=== PATIENT | male | born 1985 | race Caucasian/White ===

== ENCOUNTER 2018-03-05 15:10 | Emergency (ER) | payer SELFPAY ==
--- NOTE | 2018-03-05 15:49 | RAD ---
LEFT SHOULDER: 03/05/18 Three views. INDICATION: Injury with shoulder pain. Humeral head is normally positioned. AC joint is normally aligned. Small osseous fragment adjacent to the AC joint may represent prior injury. This does not appear to represent an acute fracture. This d oes not appear consistent with hypertrophic spurring. IMPRESSION: No evidence of acute abnormality. POS: [facility]
[2018-03-05] MEDS ORDERED: HYDROcodone/Acetaminophen 5/325 mg Tablet ONE (15:58)
[2018-03-05] MEDS ORDERED: Ketorolac Tromethamine 60 MG/2 ML VIAL ONE (15:58)
[2018-03-05] MEDS ORDERED: Acetaminophen 500 MG TAB ONE (15:58)
== END 2018-03-05 16:10 | disposition home or self-care (01) ==
LOC: MADERS 15:10
DX: S43.402A Unspecified sprain of left shoulder joint, initial encounter (principal); V29.9XXA Motorcycle rider (driver) (passenger) injured in unspecified traffic accident, initial encounter
CPT/HCPCS: 96372; J1885

== ENCOUNTER 2018-09-04 22:26 | Emergency (ER) | payer SELFPAY, BC ==
[2018-09-04] MEDS ORDERED: Nitroglycerin 0.4 MG TAB (25 Tab Bottle) ONE (22:46)
[2018-09-04 22:48] LABS: #Basophils 0.1 thou/uL (0.0-0.2); #Eosinphils 0.3 thou/uL (0.0-0.7); #Lymphocytes 3.9 thou/uL (1.20-3.40); #Monocytes 1.1 thou/uL (0.11-0.59); %Basophils 0.9 % (0.0-1.0); %Eosinophils 2.3 % (0.0-10.0); %Lymphocytes 31.3 % (21.0-51.0); %Monocytes 8.5 % (0.0-10.0); %Neutrophils 56.9 % (42.0-75.0); Hemoglobin 15.3 g/dL (14.0-18.0); Mean Corpuscular HGB CONC 33.1 g/dL (32.0-36.0); Mean Corpuscular Volume 84.6 fL (78.0-98.0); Mean Platelet Volume 8.3 fL (7.4-10.4); Platelet Count 276 thou/uL (130-400); RBC Distribution Width 11.6 % (11.5-14.5); Red Blood Cell (RBC) Count 5.47 mill/uL (4.70-6.10); White Blood Cell (WBC) Count 12.3 thou/uL (4.8-10.8)
[2018-09-04 23:04] LABS: ALT (SGPT) 21 U/L (8-55); AST (SGOT) 18 U/L (5-34); Albumin 4.1 g/dL (3.5-5.0); Alkaline Phosphatase 69 U/L (40-150); Anion Gap 14 mmol/L (10-20); BUN (Urea Nitrogen) 19 mg/dL (8.9-20.6); Bilirubin, Total 0.3 mg/dL (0.2-1.2); Calc. Creatinine Clearance 0 mL/min (70-130); Calcium 9.2 mg/dL (7.8-10.44); Carbon Dioxide 25 mmol/L (22-29); Chloride 108 mmol/L (98-107); Estimated GFR-MDRD 83; Globulin 2.7 g/dL (2.4-3.5); Glucose 102 mg/dL (70-105); Potassium 3.9 mmol/L (3.5-5.1); Protein, Total 6.8 g/dL (6.0-8.3); Sodium 143 mmol/L (136-145)
--- NOTE | 2018-09-04 23:23 | RAD ---
CHEST ONE VIEW: History: Pain. Comparison: 07-12-10 FINDINGS: Normal cardiac silhouette. The lungs and pleural spaces are clear. No pneumothorax or osseous abnorma lities. IMPRESSION: No acute cardiopulmonary process. POS: [id number]
== END 2018-09-05 01:40 | disposition left against medical advice (07) ==
LOC: MADERS 22:26
DX: R07.9 Chest pain, unspecified (principal); F17.210 Nicotine dependence, cigarettes, uncomplicated
CPT/HCPCS: 71045; 80053; 84484; 85025; 85379; 93005; 94760

== ENCOUNTER 2019-07-07 16:28 | Emergency (ER) | payer BC, SELFPAY | END 2019-07-07 18:01 | disposition home or self-care (01) | LOC: MADERS 16:28 | DX: B34.9 Viral infection, unspecified (principal); F17.210 Nicotine dependence, cigarettes, uncomplicated; Z71.6 Tobacco abuse counseling | CPT/HCPCS: 87081; 87430; 87804; 99406; J7620 ==

== ENCOUNTER 2019-09-19 15:29 | Emergency (ER) | payer SELFPAY ==
[2019-09-19] MEDS ORDERED: Ondansetron ODT 4 MG TAB ONE (15:50)
[2019-09-19] MEDS ORDERED: Dicyclomine 10 MG CAP ONE (15:50)
[2019-09-19] MEDS ORDERED: Sodium Chloride 0.9% 2,000 ML ONE (16:09)
== END 2019-09-19 18:15 | disposition home or self-care (01) ==
LOC: MADERS 15:29
DX: K52.9 Noninfective gastroenteritis and colitis, unspecified (principal); E86.9 Volume depletion, unspecified; F17.210 Nicotine dependence, cigarettes, uncomplicated
CPT/HCPCS: 96360; 96361; J7050; Q0162